=== PATIENT | female | born 1970 | race Two or more races ===

== ENCOUNTER 2018-03-16 10:40 | Emergency (ER) | payer OTHER ==
[~2018-03-16] VITALS: Ht 160 cm; Wt 78.9 kg
[2018-03-16 11:09] VITALS: Ht 160 cm; Wt 78.9 kg
[2018-03-16 11:29] VITALS: BP 127/75
== END 2018-03-16 11:44 | disposition home or self-care (01) ==
LOC: ED 10:40
DX: L23.89 Allergic contact dermatitis due to other agents (principal); T36.0X5A Adverse effect of penicillins, initial encounter; I10 Essential (primary) hypertension; Y92.89 Other specified places as the place of occurrence of the external cause
CPT/HCPCS: J7512; Q0163